=== PATIENT | male | born 1955 | race Caucasian/White ===

== ENCOUNTER 2019-06-22 19:56 | Emergency (ER) | payer BC ==
[~2019-06-22] VITALS: Ht 180.3 cm; Wt 84.1 kg
[2019-06-22 20:04] VITALS: BP 123/78; PULSE 81; TEMP 97.6
[2019-06-22] MEDS ORDERED: SYNTHROID0.075 MG/T PO (20:59)
[2019-06-22] MEDS ORDERED: INDERAL 20MG20 MG PO (20:59)
[2019-06-22] MEDS ORDERED: CILOXAN 5 ML5 ML OD (21:28)
== END 2019-06-22 21:30 | disposition home or self-care (01) ==
LOC: COL.ER 19:56
DX: S05.01XA Injury of conjunctiva and corneal abrasion without foreign body, right eye, initial encounter (principal); H00.023 Hordeolum internum right eye, unspecified eyelid; X58.XXXA Exposure to other specified factors, initial encounter

== ENCOUNTER → 2023-03-22 | Outpatient (CLI) | payer MEDICARE ==
[~2023-03-22] MED LIST: CILOXAN 5 ML5 ML OD; INDERAL 20MG20 MG PO; SYNTHROID0.075 MG/T PO
== END ==
LOC: COL.RAD 09:06
DX: Z12.2 Encounter for screening for malignant neoplasm of respiratory organs (principal); F17.210 Nicotine dependence, cigarettes, uncomplicated